=== PATIENT | female | born 1965 | race Caucasian/White ===

== ENCOUNTER 2016-06-10 01:50 | Emergency (ER) | payer MEDICARE, BC ==
[~2016-06-10] VITALS: Ht 154.9 cm; Wt 50.8 kg
[~2016-06-10 01:50] MED LIST: ALBUTEROL2.5 MG/3 M HHN; AURALGAN OTIC1 DROP LEFT EAR; CLEOCIN150 MG ORAL; CLINDAMYCIN HC300 MG ORAL; IBUPROFEN600 MG ORAL; LAMICTAL200 MG PO; NEOSPORIN OINT30 GM EXT; SEROQUEL50 MG PO; SILVADENE CREAM50 GM TOP; SYNTHROID25 MCG PO
[2016-06-10 01:56] VITALS: BP 126/78
[2016-06-10] MEDS ORDERED: CLINDAMYCIN HC300 MG ORAL (02:16)
[2016-06-10 02:23] VITALS: BP 122/72
--- NOTE | 2016-06-10 04:50 | Emergency Room Report ---
History of Present Illness General Chief Complaint: Wound Recheck/Suture Removal Source: Patient Present Illness HPI 51-year-old female presents ED for evaluation. States that there is a insect bite on her right leg. Has been there for many days now. States she was scratching it is now infected. Notes some pain, throbbing, 10/17, nonradiating. No other aggravating or relieving factors. Denies any discharge. Denies any fevers or chills. No other aggravating or relieving factors. Denies any other associated symptoms Allergies: Coded Allergies: PENICILLINS (Verified Allergy, Severe, ANGIOEDEMA, 12/13/09) Black Pepper (Verified Allergy, Anaphylaxis, 01/24/12) Shrimp (Verified Allergy, Rash, 01/24/12) Patient History Past Medical History: asthma, GERD Past Surgical History: none Pertinent Family History: none Social History: Denies: alcohol use, drug use, smoking Now: No Immunizations: UTD Reviewed Nursing Documentation: PMH: Agreed, PSxH: Agreed Nursing Documentation-PMH Hx Cardiac Problems: Yes - blood clot in the left arm in 2009 Hx Asthma: Yes Hx Gastrointestinal Problems: Yes - GERD Review of Systems All Other Systems: negative except mentioned in HPI Physical Exam Vital Signs Date Time Temp Pulse Resp B/P Pulse Ox O2 Delivery O2 Flow Rate FiO2 06/10/16 01:56 98.1 87 16 126/78 98 Room Air Sp02 EP Interpretation: reviewed, normal General Appearance: no apparent distress, alert, GCS 15, non-toxic Head: normocephalic Eyes: bilateral eye PERRL, bilateral eye normal inspection ENT: normal ENT inspection Neck: normal inspection Respiratory: normal inspection Cardiovascular #1: normal inspection Gastrointestinal: normal inspection Rectal: deferred Genitourinary: no CVA tenderness Musculoskeletal: normal inspection Neurologic: alert, oriented x3, responsive, motor strength/tone normal, sensory intact, speech normal Psychiatric: judgement/insight normal, memory normal, mood/affect normal, no suicidal/homicidal ideation Skin: other - erythema/induration to R ankle. no discharge. no fluctuance Lymphatic: normal inspection Medical Decision Making Diagnostic Impression: Primary Impression: Insect bite Qualified Codes: W57.XXXA - Bitten or stung by nonvenomous insect and other nonvenomous arthropods, initial encounter ER Course Hospital Course 51-year-old female presents to ED with redness, swelling to right ankle Differential diagnoses include: Cellulitis, dermatitis, insect bite, abscess Clinical course Patient placed on stretcher. After initial history, physical exam reveals a female in no acute distress. On exam there is a site for mild erythema and induration to the right ankle. There is no fluctuance. There is no tenderness. Full range of motion is noted in the right ankle and there is no concern for any signs of infection to the joint. Clinical findings consistent with a insect bite with the possible bacterial superinfection. reassurance given Diagnosis - bug bite stable and discharged to home with prescription for Clindamycin. Instructed to followup with PMD. Instructed return to ED if symptoms recur or worsen Last Vital Signs Date Time Temp Pulse Resp B/P Pulse Ox O2 Delivery O2 Flow Rate FiO2 06/10/16 02:23 98.1 68 16 122/72 98 Room Air Disposition: HOME, SELF-CARE Condition: Stable Scripts Clindamycin Hcl (CLINDAMYCIN HCL) 300 Mg Capsule 300 MG ORAL THREE TIMES A DAY, #21 CAP Prov: EMMA HOLGUIN M.D. 06/10/16 Referrals: NOT CHOSEN [facility]/,REFERRING (PCP) Patient Instructions: Insect Bite, [id number] EMMA HOLGUIN M.D. Jun 10, 2016 04:50
== END 2016-06-10 02:23 | disposition home or self-care (01) ==
LOC: EMR 02:16
DX: S80.861A Insect bite (nonvenomous), right lower leg, initial encounter (principal); J45.909 Unspecified asthma, uncomplicated; K21.9 Gastro-esophageal reflux disease without esophagitis; Z88.0 Allergy status to penicillin; Z91.013 Allergy to seafood; W57.XXXA Bitten or stung by nonvenomous insect and other nonvenomous arthropods, initial encounter; Y92.9 Unspecified place or not applicable; Y99.8 Other external cause status
CPT/HCPCS: 99283

== ENCOUNTER 2016-07-22 13:22 | Emergency (ER) | payer MEDICARE, BC ==
[~2016-07-22] VITALS: Ht 157.5 cm; Wt 47.6 kg
[2016-07-22 13:57] VITALS: BP 120/77
[2016-07-22] MEDS ORDERED: KENALOG 0.5% CR15 GM APPLIC (13:59)
[2016-07-22] MEDS ORDERED: PREDNISONE20 MG ORAL (13:59)
[2016-07-22 14:06] VITALS: BP 120/77
--- NOTE | 2016-07-22 22:15 | Emergency Room Report ---
History of Present Illness General Chief Complaint: Skin Rash/Abscess Source: Patient Present Illness HPI The patient is a 51-year-old female with a stated history of allergies to Pepper and penicillin presenting for possible allergic reaction. The patient states that she used facial cream which she has been using for the past year yesterday and then noticed redness, burning, and itching to all the areas in which she applied the cream. She has never had a reaction to this cream. The patient immediately took it off, and cleaned her face. She did not use any medications for the reaction but states that symptoms are much better today. Pain is now described as a 5/10 burning sensation to the face accompanied by itching and does not radiate. Pain worse with touch. She denies any other symptoms including nausea, vomiting, fever, chills, cough, shortness of breath Allergies: Coded Allergies: PENICILLINS (Verified Allergy, Severe, ANGIOEDEMA, 12/13/09) Black Pepper (Verified Allergy, Anaphylaxis, 01/24/12) Shrimp (Verified Allergy, Rash, 01/24/12) Patient History Past Medical History: see triage record Pertinent Family History: none Last Menstrual Period: 2016 Now: No Reviewed Nursing Documentation: PMH: Agreed, PSxH: Agreed Nursing Documentation-PMH Past Medical History: No History, Except For Hx Cardiac Problems: Yes - blood clot in the left arm in 2009 Hx Asthma: Yes Hx Gastrointestinal Problems: Yes - GERD History Of Psychiatric Problem: Yes - bipolar Review of Systems All Other Systems: negative except mentioned in HPI Physical Exam Vital Signs Date Time Temp Pulse Resp B/P Pulse Ox O2 Delivery O2 Flow Rate FiO2 07/22/16 13:31 97.9 76 16 120/77 98 Room Air Sp02 EP Interpretation: reviewed, normal General Appearance: no apparent distress, alert, GCS 15, non-toxic Head: normocephalic, atraumatic Eyes: bilateral eye PERRL, bilateral eye normal inspection ENT: hearing grossly normal, normal pharynx, no angioedema, normal voice Neck: full range of motion, supple/symm/no masses Respiratory: chest non-tender, lungs clear, normal breath sounds, speaking full sentences Musculoskeletal: back normal, gait/station normal, normal range of motion, non- tender Neurologic: alert, oriented x3, responsive, motor strength/tone normal, sensory intact, speech normal Psychiatric: judgement/insight normal, memory normal, no suicidal/homicidal ideation, anxious Skin: normal color, warm/dry, well hydrated, rash - erythema to face Lymphatic: no adenopathy Medical Decision Making PA Attestation Dr. Gomez is my supervising physician. Patient management was discussed with my supervising physician Diagnostic Impression: Primary Impression: Contact dermatitis Qualified Codes: L25.0 - Unspecified contact dermatitis due to cosmetics ER Course The patient is a 51-year-old female presenting with possible allergic reaction Differential diagnoses considered but not limited to: Contact dermatitis, anaphylaxis, cellulitis Physical exam: Afebrile. Patient does appear anxious There is mild erythema to the face. Nontender. No angioedema. Oropharynx is patent Prescription auscultation bilaterally The patient is discharged home with a prescription for topical steroids and oral steroids. She will followup with PMD. ER precautions given Last Vital Signs Date Time Temp Pulse Resp B/P Pulse Ox O2 Delivery O2 Flow Rate FiO2 07/22/16 14:06 97.9 89 16 120/77 98 Room Air Status: improved Disposition: HOME, SELF-CARE Condition: Improved Scripts Prednisone* (PREDNISONE*) 20 Mg Tablet 40 MG ORAL DAILY, #8 TAB Prov: DARLYN MITCHELLA. 07/22/16 Triamcinolone Acet (Triamcinolone Acetonide) 15 Gm Cream..g. 15 GM APPLIC TID, #15 GM Prov: DARLYN MITCHELL.A. 07/22/16 Referrals: NOT CHOSEN IPA/MD,REFERRING (PCP) Patient Instructions: Rash Additional Instructions: I discussed my findings with the patient. All questions and concerns have been answered. Treatment and medication compliance have been addressed. I advised the patient that they need to follow up with PMD in 3-5 days. Return to ED if symptoms worsen, new symptoms arise, or if needed for any reason. Patient verbalized understanding of discharge instructions. DARLYN MITCHELL July 22, 2016 22:15
== END 2016-07-22 14:15 | disposition home or self-care (01) ==
LOC: EMR 13:57
DX: L25.9 Unspecified contact dermatitis, unspecified cause (principal); J45.909 Unspecified asthma, uncomplicated; K21.9 Gastro-esophageal reflux disease without esophagitis; F31.9 Bipolar disorder, unspecified
CPT/HCPCS: 99284

== ENCOUNTER 2017-01-04 01:43 | Emergency (ER) | payer MEDICARE, BC ==
[~2017-01-04] VITALS: Ht 154.9 cm; Wt 47.6 kg
[~2017-01-04 01:43] MED LIST changes: +KENALOG 0.5% CR15 GM APPLIC; +PREDNISONE20 MG ORAL
[2017-01-04 01:55] VITALS: BP 124/84
--- NOTE | 2017-01-04 02:10 | Emergency Room Report ---
History of Present Illness General Chief Complaint: General Complaint Source: Patient Present Illness HPI Is a 51-year-old female with history of anxiety and other psychiatric issue. She presents with chief complaint of tremor. Is seen a who did an EEG on her and said that her abnormal brain wave activity secondary to Lamictal. She is being weaned off of it. Last week when she went down a dose she started having tremors and headache with nausea but no vomiting. It lasted 3 days. Tonight she went down another dose and had the similar symptoms. She said she felt tremors to her arms and legs. She was worried that this may be something else going on. Denies any other complaint. Suicidal thoughts or homicidal thought. Allergies: Coded Allergies: PENICILLINS (Verified Allergy, Severe, ANGIOEDEMA, 12/13/09) Black Pepper (Verified Allergy, Anaphylaxis, 01/24/12) Shrimp (Verified Allergy, Rash, 01/24/12) Patient History Past Medical History: see triage record, old chart reviewed Past Surgical History: other Pertinent Family History: none Social History: Denies: smoking Now: No : 0 Para: 0 Immunizations: other Reviewed Nursing Documentation: PMH: Agreed, PSxH: Agreed Nursing Documentation-PMH Hx Cardiac Problems: Yes - Mitral valve prolapse Hx Asthma: Yes Hx Gastrointestinal Problems: Yes - GERD History Of Psychiatric Problem: Yes - ADD Review of Systems Eye: Denies: eye pain, blurred vision ENT: Denies: ear pain, nose congestion, throat swelling Respiratory: Denies: cough, shortness of breath Cardiovascular: Denies: chest pain, palpitations Gastrointestinal: Denies: abdominal pain, diarrhea, nausea, vomiting Musculoskeletal: Denies: back pain, joint pain Skin: Denies: rash Neurological: Denies: headache, numbness Endocrine: Denies: increased thirst, increased urine Hematologic/Lymphatic: Denies: easy bruising All Other Systems: negative except mentioned in HPI Physical Exam Vital Signs Date Time Temp Pulse Resp B/P (MAP) Pulse Ox O2 Delivery O2 Flow Rate FiO2 01/04/17 01:46 98.1 70 16 124/84 100 Room Air vitals normal Sp02 EP Interpretation: reviewed, normal General Appearance: well appearing, no apparent distress, alert Head: normocephalic, atraumatic Eyes: bilateral eye PERRL, bilateral eye EOMI ENT: hearing grossly normal, normal pharynx Neck: full range of motion, supple, no meningismus Respiratory: chest non-tender, lungs clear, normal breath sounds Cardiovascular #1: regular rate, rhythm, no murmur Gastrointestinal: normal bowel sounds, non tender, no mass, no organomegaly, no bruit, non-distended Musculoskeletal: back normal, gait/station normal, normal range of motion Neurologic: alert, oriented x3 Psychiatric: anxious Skin: warm/dry Medical Decision Making Diagnostic Impression: Primary Impression: Tremor ER Course Patient with chief complaint of tremor. This may be withdrawal symptom as she is decreasing the limit. She could also be very anxious and is a hypochondriac. She is stable otherwise we will discharge home. Last Vital Signs Date Time Temp Pulse Resp B/P (MAP) Pulse Ox O2 Delivery O2 Flow Rate FiO2 01/04/17 01:46 98.1 70 16 124/84 100 Room Air Status: improved Disposition: HOME, SELF-CARE Condition: Stable Additional Instructions: Followup with your doctor Friday. Return if symptom worsen. BRAVO DEL RIO M.D. Jan 04, 2017 02:10
[2017-01-04 02:15] VITALS: BP 124/84
== END 2017-01-04 02:15 | disposition home or self-care (01) ==
LOC: EMR 02:06
DX: R25.1 Tremor, unspecified (principal); J45.909 Unspecified asthma, uncomplicated; K21.9 Gastro-esophageal reflux disease without esophagitis; I34.1 Nonrheumatic mitral (valve) prolapse
CPT/HCPCS: 99282

== ENCOUNTER 2017-02-12 22:46 | Emergency (ER) | payer MEDICARE, BC ==
[~2017-02-12] VITALS: Ht 154.9 cm; Wt 47.6 kg
[2017-02-12 22:52] VITALS: BP 121/81
[2017-02-12 23:06] VITALS: BP 121/81
[2017-02-12] MEDS ORDERED: HYDROCORTISONE30 G2 TP (23:19)
--- NOTE | 2017-02-12 23:19 | Emergency Room Report ---
History of Present Illness General Chief Complaint: Skin Rash/Abscess Source: Patient Present Illness HPI Is a 51-year-old female with history of anxiety. She presents with rash on her forearm bilaterally for the last couple days. Eating worse. She is moving to a new condo and she has been cleaning it. She thinks the water was too hot. Denies any fever or chills. That is very itchy and she's been rubbing it. No other complaint. Allergies: Coded Allergies: PENICILLINS (Verified Allergy, Severe, ANGIOEDEMA, 12/13/09) Black Pepper (Verified Allergy, Anaphylaxis, 01/24/12) Shrimp (Verified Allergy, Rash, 01/24/12) Patient History Past Medical History: see triage record, old chart reviewed, psych hx Past Surgical History: other Pertinent Family History: none Social History: Denies: smoking Last Menstrual Period: 2 years ago Now: No Immunizations: other Reviewed Nursing Documentation: PMH: Agreed, PSxH: Agreed Nursing Documentation-PMH Hx Cardiac Problems: Yes - Mitral valve prolapse,ADHD Hx Asthma: Yes Hx Gastrointestinal Problems: Yes - GERD Review of Systems Eye: Denies: eye pain, blurred vision ENT: Denies: ear pain, nose congestion, throat swelling Respiratory: Denies: cough, shortness of breath Cardiovascular: Denies: chest pain, palpitations Gastrointestinal: Denies: abdominal pain, diarrhea, nausea, vomiting Musculoskeletal: Denies: back pain, joint pain Skin: Denies: rash Neurological: Denies: headache, numbness Endocrine: Denies: increased thirst, increased urine Hematologic/Lymphatic: Denies: easy bruising All Other Systems: negative except mentioned in HPI Physical Exam Vital Signs Date Time Temp Pulse Resp B/P (MAP) Pulse Ox O2 Delivery O2 Flow Rate FiO2 02/12/17 22:52 97.5 77 18 121/81 98 Room Air vitals normal Sp02 EP Interpretation: reviewed, normal General Appearance: well appearing, no apparent distress, alert Head: normocephalic, atraumatic Eyes: bilateral eye PERRL, bilateral eye EOMI ENT: hearing grossly normal, normal pharynx Neck: full range of motion, supple, no meningismus Respiratory: chest non-tender, lungs clear, normal breath sounds Cardiovascular #1: regular rate, rhythm, no murmur Gastrointestinal: normal bowel sounds, non tender, no mass, no organomegaly, no bruit, non-distended Musculoskeletal: back normal, gait/station normal, normal range of motion Neurologic: alert, oriented x3 Psychiatric: mood/affect normal Skin: warm/dry, other - The skin on her forearms are very dry. She has scaliness and cracking of the skin. There is discoloration up to the proximal forearm laterally Medical Decision Making Diagnostic Impression: Primary Impression: Atopic dermatitis Qualified Codes: L20.9 - Atopic dermatitis, unspecified ER Course Patient with atopic dermatitis. Unknown etiology. She says she is seeing her employment coordinator tomorrow. Tell her to take Benadryl for itching. We'll prescribe steroid cream. No evidence of bacterial infection. No evidence of necrotizing fasciitis. Last Vital Signs Date Time Temp Pulse Resp B/P (MAP) Pulse Ox O2 Delivery O2 Flow Rate FiO2 02/12/17 22:52 97.5 77 18 121/81 98 Room Air Status: unchanged Disposition: HOME, SELF-CARE Condition: Stable Scripts Hydrocortisone (Hydrocortisone Cream 2.5%) Y Cream.appl 1 APPLIC TP BID, #30 GM Prov: BRAVO DEL RIO M.D. 02/12/17 Additional Instructions: See your employment coordinator tomorrow as scheduled. Return if worse. BRAVO DE LRIO M.D. Feb 12, 2017 23:19
== END 2017-02-12 23:35 | disposition home or self-care (01) ==
LOC: EMR 23:09
DX: L20.9 Atopic dermatitis, unspecified (principal); J45.909 Unspecified asthma, uncomplicated; K21.9 Gastro-esophageal reflux disease without esophagitis; Z91.013 Allergy to seafood; Z88.0 Allergy status to penicillin
CPT/HCPCS: 99283

== ENCOUNTER 2017-11-03 02:20 | Emergency (ER) | payer MEDICARE, BC ==
[~2017-11-03] VITALS: Ht 154.9 cm; Wt 59.0 kg
[~2017-11-03 02:20] MED LIST changes: +HYDROCORTISONE30 G2 TP
[2017-11-03 02:37] VITALS: BP 120/80
[2017-11-03] MEDS ORDERED: Bacitracin Oint UD TOPIC ONE (03:00)
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
[2017-11-03] MEDS ORDERED: BACITRACIN15 GM TOPIC (03:13)
[2017-11-03] MEDS ORDERED: HYDROCORTISONE-30 GM TOPIC (03:13)
[2017-11-03] MEDS ORDERED: BENADRYL25 MG ORAL (03:13)
[2017-11-03 03:29] VITALS: BP 120/80
[2017-11-03 03:30] VITALS: BP 118/74
== END 2017-11-03 03:25 | disposition home or self-care (01) ==
LOC: EMR 02:46
DX: S90.562A Insect bite (nonvenomous), left ankle, initial encounter (principal); S90.561A Insect bite (nonvenomous), right ankle, initial encounter; W57.XXXA Bitten or stung by nonvenomous insect and other nonvenomous arthropods, initial encounter; Y93.E1 Activity, personal bathing and showering; Y92.012 Bathroom of single-family (private) house as the place of occurrence of the external cause; J32.9 Chronic sinusitis, unspecified; S80.02XA Contusion of left knee, initial encounter; V43.52XA Car driver injured in collision with other type car in traffic accident, initial encounter; Y92.410 Unspecified street and highway as the place of occurrence of the external cause; Z88.0 Allergy status to penicillin; Z91.013 Allergy to seafood; I34.1 Nonrheumatic mitral (valve) prolapse; F90.9 Attention-deficit hyperactivity disorder, unspecified type
CPT/HCPCS: 99283